=== PATIENT | male | born 1960 | race Caucasian/White ===

== ENCOUNTER 2016-09-19 22:02 | Emergency (ER) | payer BC ==
--- NOTE | 2016-09-19 22:31 | ED Physician Documentation ---
PD HPI ABD PAIN - Stated complaint Stated Complaint: ABD PX - Chief complaint Chief Complaint: Abd Pain - History obtained from History obtained from: Patient, Family - History of Present Illness Timing - onset: Enter time (18:00) Timing - duration: Hours Timing - details: Abrupt onset, Constant, Waxing and waning Pain level max: 10 Pain level now: 10 Quality: Pain Location: All over / everywhere Radiation: No: Chest, , Lower back, Left flank, Left shoulder, Right flank, Right shoulder, Upper back Improved by: Other (no ameliorating factors) Worsened by: Moving, Palpation Associated symptoms: Nausea, Vomiting. No: Fever, Diarrhea, Constipation Similar symptoms before: Has not had sx before Recently seen: Not recently seen Review of Systems Constitutional: reports: Reviewed and negative Cardiac: reports: Reviewed and negative Respiratory: reports: Reviewed and negative GI: reports: Abdominal Pain, Nausea, Vomiting : denies: Dysuria, Hematuria PD PAST MEDICAL HISTORY - Past Medical History Past Medical History: Yes Cardiovascular: Hypertension - Past Surgical History Past Surgical History: Yes General: Gastric surgery (gastric bypass), Other (bilateral inguinal hernia repair) - Allergies Allergies/Adverse Reactions: Allergies Allergy/AdvReac Type Severity Reaction Status Date / Time No Known Drug Allergies Allergy Verified 09/19/16 22:56 - Living Situation Living Situation: reports: With spouse/s.o. - Social History Does the pt smoke?: No PD ED PE NORMAL - Vitals Vital signs reviewed: Yes - General General: Alert and oriented X 3, Well developed/nourished, Other (severe painful distress) - HEENT HEENT: Moist mucous membranes - Neck Neck: Supple, no meningeal sign - Cardiac Cardiac: RRR, No murmur - Respiratory Respiratory: No respiratory distress, Clear bilaterally - Abdomen Abdomen: Soft, Non distended - Back Back: No CVA TTP - Derm Derm: Normal color, Warm and dry - Extremities Extremities: No edema PD ED PE EXPANDED - Abdomen Abdomen: Tender to palpation (tenderness at umbilicus, there is a visible and palpable firm, tender hernia at the umbilicus.) Results - Vitals Vitals: Vital Signs - 24 hr 09/20/16 03:26 Temperature 36.4 C L Heart Rate 62 Respiratory 15 Rate Blood Pressure 114/78 O2 Saturation 97 Oxygen O2 Source Room air - Labs Labs: Microbiology 06/16/17 23:22 Urine Culture - Preliminary Urine,Clean Catch Laboratory Tests 09/19/16 09/19/16 09/19/16 22:30 22:30 23:22 WBC 7.8 RBC 4.83 Hgb 15.4 Hct 44.2 MCV 91.4 MCH 31.8 H MCHC 34.8 RDW 13.2 Plt Count 172 MPV 7.8 Neut # 6.6 Lymph # 0.8 L [place] # 0.3 Eos # 0.0 Baso # 0.0 Absolute Nucleated RBC 0.00 Nucleated RBCs 0.0 Sodium 137 Potassium 3.4 L Chloride 99 L Carbon Dioxide 25 Anion Gap 13.0 BUN 11 Creatinine 0.7 Estimated GFR (MDRD) 118 Glucose 161 H Calcium 9.4 Total Bilirubin 0.8 AST 26 ALT 20 Alkaline Phosphatase 58 Total Protein 8.0 Albumin 4.6 Globulin 3.4 Albumin/Globulin Ratio 1.4 Lipase 32 Urine Color YELLOW Urine Clarity CLEAR Urine pH 5.5 Ur Specific [place] >=1.030 H Urine Protein NEGATIVE Urine Glucose (UA) NEGATIVE Urine Ketones 15 H Urine Occult Blood SMALL H Urine Nitrite POSITIVE H Urine Bilirubin NEGATIVE Urine Urobilinogen 0.2 (NORMAL) Ur Leukocyte Esterase NEGATIVE Urine RBC 0-5 Urine WBC 4-5 Ur Squamous Epith Cells RARE Squamous Urine Bacteria Many H Ur Microscopic Review INDICATED Urine Culture Comments INDICATED - Rads (name of study) CT A/P Radiology: Prelim report reviewed, See rad report PD MEDICAL DECISION MAKING - ED course Complexity details: reviewed results, re-evaluated patient, considered differential, d/w patient, d/w family ED course: patient presents with sudden onset of abdominal pain that is diffuse but worst in the umbilicus all region. Physical exam reveals a firm and tender hernia at the umbilicus. My attempt at her any reduction was unsuccessful. As the on-call surgeon, Dr. Briseno, was in the emergency department evaluating another patient, I consulted him early in this patient's ED course. I accompanied Dr. Briseno into the patient's room approximately 15 minutes after I attempted to reduce the umbilical hernia. It appeared that in that span of time, the hernia had substantially reduced, and patient appeared significantly more comfortable, although he had also received IV Dilaudid by that time. patient's discomfort subsequently rapidly resolved and did not reoccur during the rest of his ED stay. The results of the CT scan were discussed with the patient as well as the surgery consult. Patient was carefully instructed to return if he has any recurrence of his symptoms, particularly pain. I also instructed him to return if he does not have a bowel movement in the next 24 hours, as per the surgical consults recommendation. Patient was awake, alert, in no distress, and expresses understanding of, and comfort with, this plan. No pain medications after the solitary dose of intravenous Dilaudid we're given nor required nor requested, and no prescriptions provided. prior to discharge, his abdominal exam revealed no tenderness in all four quadrants and no tenderness at the umbilicus. There was no palpable hernia at the umbilicus at the time of this exam performed prior to discharge. Departure - Departure Disposition: 01 Home, Self Care Clinical Impression: Abdominal hernia Qualifiers: Hernia type: umbilical Obstruction and gangrene presence: without obstruction or gangrene Qualified Code(s): K42.9 - Umbilical hernia without obstruction or gangrene Condition: Good Instructions: ED Hernia Inguinal Follow-Up: Ang Briseno DO [Provider Admit Priv/Credential] - Discharge Date/Time: 09/20/16 04:00
[2016-09-19] MEDS ORDERED: ONDANSETRON 4 MG/2 ML VIAL ONE (22:43)
[2016-09-19] MEDS ORDERED: HYDROmorphone 1 MG/ML SYRINGE ONE (22:43)
[2016-09-19] MEDS ORDERED: ONDANSETRON 4 MG/2 ML VIAL IVP STA (22:48)
[2016-09-19] MEDS ORDERED: HYDROmorphone 1 MG/ML SYRINGE IVP STA (22:48)
[2016-09-19] MEDS ORDERED: SODIUM CHLORIDE 0.9% 1,000 ML IV STA (22:48)
[2016-09-19 23:07] LABS: BASOPHILS % (AUTO) 0.4 %; EOSINOPHILS % (AUTO) 0.4 %; HCT - HEMATOCRIT 44.2 % (42.0-52.0); HGB - HEMOGLOBIN 15.4 g/dL (14.0-18.0); LYMPHOCYTES # (AUTO) 0.8 10^3/uL (1.5-3.5); MEAN CORPUSCULAR HEMOGLOBIN 31.8 pg (27.0-31.0); MEAN CORPUSCULAR HGB CONC 34.8 g/dL (32.0-36.0); MEAN CORPUSCULAR VOLUME 91.4 fL (80.0-94.0); MEAN PLATELET VOLUME 7.8 fL (7.4-11.4); MONOCYTES # (AUTO) 0.3 10^3/uL (0.0-1.0); MONOCYTES % (AUTO) 4.1 %; NEUTROPHILS # (AUTO) 6.6 10^3/uL (1.5-6.6); NEUTROPHILS % (AUTO) 85.1 %; RED BLOOD COUNT 4.83 10^6/uL (4.70-6.10); RED CELL DISTRIBUTION WIDTH 13.2 % (12.0-15.0); UNCORRECTED WHITE BLOOD COUNT 7.8 x10^3/uL; WHITE BLOOD COUNT 7.8 x10^3/uL (4.8-10.8)
[2016-09-19 23:17] LABS: ALBUMIN/GLOBULIN RATIO 1.4 (1.0-2.2); BILIRUBIN,TOTAL 0.8 mg/dL (0.2-1.0); CALCIUM 9.4 mg/dL (8.5-10.3); CREATININE 0.7 mg/dL (0.6-1.2); POTASSIUM 3.4 mmol/L (3.5-5.0)
[2016-09-19 23:53] LABS: BILIRUBIN,URINE NEGATIVE (NEGATIVE); PH,URINE 5.5 PH (5.0-7.5); UA w/ MICROSCOPIC CHARGE YES
[2016-09-19 23:54] LABS: UR CULTURE IF IND INDICATED
[2016-09-20] MEDS ORDERED: IOPAMIDOL-300 50 ML VIAL PO ONE (01:31)
[2016-09-20] MEDS ORDERED: IOPAMIDOL-300 100 ML VIAL IVP ONE (01:31)
--- NOTE | 2016-09-20 02:00 | CT Report ---
EXAM: CT ABDOMEN AND PELVIS EXAM DATE: 09/20/2016 01:37 AM. CLINICAL HISTORY: Abdominal pain COMPARISONS: None. TECHNIQUE: Routine helical CT imaging was performed through the abdomen and pelvis. IV contrast: Yes . Enteric contrast: Yes. Reconstructions: Coronal and sagittal. In accordance with CT protocol optimization, one or more of the following dose reduction techniques w ere utilized for this exam: automated exposure control, adjustment of mA and/or KV based on patient s ize, or use of iterative reconstructive technique. FINDINGS: Lung Bases: Unremarkable. Liver: Unremarkable. No suspicious masses. Gallbladder/Bile Ducts: Unremarkable post cholecystectomy. Spleen: Unremarkable. Pancreas: Unremarkable. Adrenal Glands: Unremarkable. Kidneys: Unremarkable. No suspicious masses or hydronephrosis. Peritoneal Cavity/Bowel: Post gastric bypass. Multiple left abdominal small bowel loops cranial and a nterior to the transverse colon with adjacent mild mesenteric edema. Small bowel loops not particular ly distended but there is some stool formation within left abdominal small bowel loops suggestive of some dysmotility in the region. Pelvic Organs: Bladder and prostate appear unremarkable. Vasculature: No aneurysms or other significant abnormality. Bones: No significant abnormality. Other: Periumbilical midline fat containing hernia with mild injection of the fat within the hernia s ac. Defect measures approximately 2 x 2 cm with a larger 6 x 3.5 x 5 cm hernia sac. IMPRESSION: 1. Mild injection of the fat within a periumbilical hernia sac can be seen with early fat incarcerati on. No bowel involvement. 2. Findings raise question of a post gastric bypass internal hernia containing small bowel. Minimal m esenteric edema and stool formation adjacent to the bowel loops in the left abdomen raises suspicion of some dysmotility but no evidence of a definitive complete obstruction currently. There could be ea rly obstruction in the appropriate clinical setting. [facility] Referring Provider Line: [phone] SITE ID: [id number]
[2016-09-20 03:27] VITALS: BP 114/78
== END 2016-09-20 04:00 | disposition home or self-care (01) ==
LOC: ED 22:02
DX: K42.9 Umbilical hernia without obstruction or gangrene (principal); I10 Essential (primary) hypertension; Z98.84 Bariatric surgery status; Z98.0 Intestinal bypass and anastomosis status
CPT/HCPCS: 36415; 74177; 80053; 81001; 83690; 85025; 87077; 87086; 87181; 96374; 96375; 99284; J1170; Q9967; 81003